=== PATIENT | female | born 2000 ===

== ENCOUNTER 2024-05-23 17:16 | Emergency (ER) | payer OTHER ==
[~2024-05-23] VITALS: Ht 162.6 cm; Wt 68.0 kg
== END 2024-05-23 17:38 | disposition home or self-care (01) ==
LOC: ER 17:16
DX: S93.402A Sprain of unspecified ligament of left ankle, initial encounter (principal); W01.0XXA Fall on same level from slipping, tripping and stumbling without subsequent striking against object, initial encounter
CPT/HCPCS: 99282

== ENCOUNTER → 2025-06-10 | Outpatient (CLI) | payer OTHER ==
[2025-06-10 10:28] LABS: Source, Urine Clean Catch
[2025-06-10 14:09] LABS: U Amphetamine Screen Not Detected; U Barbiturate Screen Not Detected; U Benzodiazapine Screen Not Detected; U Buprenorphine Screen Not Detected; U Cannabinoids Screen DETECTED; U Cocaine Screen Not Detected; U Methadone Screen Not Detected; U Methamphetamine Screen Not Detected; U Opiates Screen Not Detected; U Oxycodone Screen Not Detected; U Phencyclidine Screen Not Detected
[2025-06-10 14:17] LABS: Red Blood Cells, Urine 0-2 /hpf (0-2)
[2025-06-10 15:45] LABS: Creatinine, Urine Random 217.0 mg/dL (27.00-270.00); Protein, Urine Random 9.5 mg/dL (0.0-11.9); Protein/Creat Ratio, Ur Random 0.0
[2025-06-14 12:02] LABS: 11-NOR-9-CARBOXY-THC,URN,QUANT 68 ng/mL
== END ==
LOC: LAB 10:25 → LAB SHORT 10:25
PROVIDERS: Obstetrics & Gynecology
DX: Z34.81 Encounter for supervision of other normal pregnancy, first trimester (principal); Z87.59 Personal history of other complications of pregnancy, childbirth and the puerperium
CPT/HCPCS: 81015; 82570; 84156; 87077; 87086; 87186; G0480